=== PATIENT | female | born 1975 | race Caucasian/White ===

== ENCOUNTER → 2019-01-03 | Outpatient (CLI) | payer BC, OTHER | END | disposition home or self-care (01) | LOC: CFH 08:08 | PROVIDERS: ATTEND Physician Assistant | DX: Z12.31 Encounter for screening mammogram for malignant neoplasm of breast (principal); R19.00 Intra-abdominal and pelvic swelling, mass and lump, unspecified site; Z80.3 Family history of malignant neoplasm of breast | CPT/HCPCS: 76641; 77063; 77067 ==

== ENCOUNTER → 2019-07-08 | Outpatient (CLI) | payer BC ==
[~2019-07-08] MED LIST: CALC-183 PO; MAGN100T PO; MELA3TAB56 PO; NORE5TAB PO; POTASSIUM PO
[2019-07-08 15:18] LABS: BASOPHILS # (AUTO) 0.04 x10^3/uL (0-0.1); BASOPHILS % (AUTO) 1 % (0-1); EOSINOPHILS # (AUTO) 0.28 x10^3/uL (0-0.4); EOSINOPHILS % (AUTO) 4 % (1-7); LYMPHOCYTES # (AUTO) 2.41 x10^3/uL (1-3.4); LYMPHOCYTES % (AUTO) 35 % (22-44); MD NO; MEAN CORPUSCULAR HEMOGLOBIN 28.5 pg (27.0-34.8); MEAN CORPUSCULAR HGB CONC 31.8 g/dL (32.4-35.8); MEAN CORPUSCULAR VOLUME 89.7 fL (80-100); MEAN PLATELET VOLUME 8.7 fL (7.4-10.4); MONOCYTES # (AUTO) 0.41 x10^3/uL (0.2-0.8); MONOCYTES % (AUTO) 6 % (2-9); NEUTROPHILS # (AUTO) 3.82 x10^3/uL (1.8-6.8); NEUTROPHILS % (AUTO) 55 % (42-75); PLATELET COUNT 340 x10^3/uL (130-400); RED BLOOD COUNT 4.99 x10^6/uL (3.82-5.3); RED CELL DISTRIBUTION WIDTH 14.7 % (9.6-15.2)
[2019-07-08 15:31] LABS: ALBUMIN 3.8 g/dL (3.4-5.0); ANION GAP 4 mmol/L (5-15); CHLORIDE 110 mmol/L (98-107)
[2019-07-08 15:36] LABS: ALANINE AMINOTRANSFERASE 28 U/L (12-78); ALKALINE PHOSPHATASE 32 U/L (45-117); BILIRUBIN,TOTAL 0.5 mg/dL (0.2-1.0); CREATININE 0.85 mg/dL (0.55-1.02); TOTAL PROTEIN 7.4 g/dL (6.4-8.2)
[2019-07-08 15:46] LABS: MICROSCOPIC INDICATED
[2019-07-08 15:48] LABS: CULTURE INDICATED? YES
== END | disposition home or self-care (01) ==
LOC: STAR 14:13
PROVIDERS: ATTEND Obstetrics & Gynecology
DX: D21.9 Benign neoplasm of connective and other soft tissue, unspecified (principal); Z91.048 Other nonmedicinal substance allergy status; Z90.710 Acquired absence of both cervix and uterus
CPT/HCPCS: 36415; 80053; 81001; 84702; 85025; 87086

== ENCOUNTER 2019-07-18 05:57 | Day surgery (SDC) | payer BC ==
[~2019-07-18] VITALS: Ht 170.2 cm; Wt 73.0 kg
[2019-07-18] MEDS ORDERED: LACTATED RINGERS 1,000 ML IV SCH (06:40)
[2019-07-18] MEDS ORDERED: ACETAMINOPHEN 500 MG TABLET PO ONE (07:00)
[2019-07-18] MEDS ORDERED: GABAPENTIN 300 MG CAPSULE PO ONE (07:00)
[2019-07-18] MEDS ORDERED: FLUORESCEIN SODIUM 500 MG/5 ML ONE (07:18)
[2019-07-18] MEDS ORDERED: EPINEPHRINE 1 MG/ML, 1ML ONE (07:18)
[2019-07-18] MEDS ORDERED: MIDAZOLAM 1 MG/ML, 2ML ONE (07:18)
[2019-07-18] MEDS ORDERED: FENTANYL PF 100 MCG/2ML ONE ×2 (07:18→10:23)
[2019-07-18] MEDS ORDERED: PROPOFOL 10 MG/ML, 20ML ONE (07:25)
[2019-07-18] MEDS ORDERED: ROCURONIUM 10MG/ML,5ML ONE (07:25)
[2019-07-18] MEDS ORDERED: LIDOCAINE-MPF 2% ,5ML ONE (07:25)
[2019-07-18] MEDS ORDERED: CEFAZOLIN 1,000 MG ONE ×2 (07:25)
[2019-07-18 07:46] LABS: HCG UR SG 1.022 (1.003-1.030)
[2019-07-18] MEDS: BUPIVACAINE/PF 0.25% ONE ×2 (08:00→08:14)
[2019-07-18] MEDS ORDERED: METOCLOPRAMIDE 5 MG/ML, 2ML ONE (08:03)
[2019-07-18] MEDS ORDERED: DEXAMETHASONE 4 MG/ML, 1ML ONE ×2 (08:03)
[2019-07-18] MEDS ORDERED: OXYcodone 5 MG/5 ML ORAL.SOL UDC PO PRN (08:30)
[2019-07-18] MEDS ORDERED: LABETALOL 5MG/ML, 20ML IV PRN (08:30)
[2019-07-18] MEDS ORDERED: ONDANSETRON 2MG/ML, 2ML IV PRN (08:30)
[2019-07-18] MEDS ORDERED: LORazepam 2 MG/ML, 1ML IVPush PRN (08:30)
[2019-07-18] MEDS ORDERED: MEPERIDINE/PF 25MG/ML,1ML IVPush PRN (08:30)
[2019-07-18] MEDS ORDERED: DIPHENHYDRAMINE 50 MG/ML, 1ML IVPush PRN (08:30)
[2019-07-18] MEDS ORDERED: HYDROmorphone 2 MG/ML, 1ML IVPush PRN (08:30)
[2019-07-18] MEDS ORDERED: hydrALAzine 20 MG/ML, 1ML IV PRN (08:30)
[2019-07-18] MEDS ORDERED: FENTANYL PF 100 MCG/2ML IV PRN (08:30)
[2019-07-18] MEDS ORDERED: METOCLOPRAMIDE 5 MG/ML, 2ML IV PRN (08:30)
[2019-07-18] MEDS ORDERED: KETOROLAC 30 MG/1 ML ONE (10:23)
[2019-07-18] MEDS ORDERED: OXYcodone 5 MG/5 ML ORAL.SOL UDC ONE (10:23)
[2019-07-18] MEDS ORDERED: KETOROLAC 30 MG/1 ML IVPush ONE (10:30)
[2019-07-18] MEDS ORDERED: ONDANSETRON 2MG/ML, 2ML ONE (11:09)
== END 2019-07-18 16:45 | disposition home or self-care (01) ==
LOC: OUT 05:57
PROVIDERS: ATTEND Obstetrics & Gynecology
DX: D25.9 Leiomyoma of uterus, unspecified (principal); N99.71 Accidental puncture and laceration of a genitourinary system organ or structure during a genitourinary system procedure; J45.909 Unspecified asthma, uncomplicated; Z88.8 Allergy status to other drugs, medicaments and biological substances; Z90.49 Acquired absence of other specified parts of digestive tract; Z98.890 Other specified postprocedural states; Z84.89 Family history of other specified conditions; Z83.49 Family history of other endocrine, nutritional and metabolic diseases
CPT/HCPCS: 58554; 81025; 88307; J0171; J0690; J1100; J1885; J2250; J2405; J2704; J2765; J3010; J3490

== ENCOUNTER → 2020-05-22 | Outpatient (CLI) | payer BC ==
[~2020-05-22] MED LIST changes: +MELA3TAB31 PO; -MELA3TAB56 PO
== END | disposition home or self-care (01) ==
LOC: CFH 10:21
PROVIDERS: ATTEND Obstetrics & Gynecology
DX: Z12.31 Encounter for screening mammogram for malignant neoplasm of breast (principal)
CPT/HCPCS: 77063; 77067